=== PATIENT | female | born 2000 | race Caucasian/White ===

== ENCOUNTER 2022-04-14 17:02 | Observation (INO) | payer OTHER, BC, SELFPAY ==
[2022-04-14] VITALS (15 sets, daily range): BP systolic 115–145; BP diastolic 74–96; PULSE 82–122; RESP 16–18; TEMP 36.8–36.9; O2SAT 95–99; BMI 21.1
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
[2022-04-14] MEDS: KETOROLAC 30 MG/ML VIAL 15 MG IV (18:13)
[2022-04-14 18:49] LABS: Add Manual Diff / Slide Review NO; Basophils Absolute Auto 100 /uL (0-100); Basophils Percent Auto 0.7 % (0-2); Eosinophils Absolute Auto 100 /uL (0-450); Eosinophils Percent Auto 1.6 % (2-4); Hematocrit 36.1 % (36-46); Hemoglobin 12.4 g/dL (12.0-16.0); Lymphocytes Absolute Auto 2700 /uL (1100-4500); Lymphocytes Percent Auto 35.9 % (25-40); Mean Corpuscular HGB Conc 34.5 % (30-36); Mean Corpuscular Hemoglobin 30.9 PG (26-34); Mean Corpuscular Volume 89.8 fL (80-100); Monocytes Absolute Auto 500 /uL (0-900); Monocytes Percent Auto 7.3 % (3-14); Neutrophils Absolute Auto 4000 /uL (1500-7000); Neutrophils Percent Auto 54.5 % (50-75); Platelet Count 315 X10^3/uL (150-400); Red Blood Cell Count 4.02 X10^6/uL (4.0-5.2); Red Cell Distribution Width 12.5 % (11.6-14.8); White Blood Cell Count 7.4 X10^3/uL (4.5-11.0)
[2022-04-14 18:51] LABS: INR 1.1 (0.9-1.3); Prothrombin Time 13.1 SECONDS (10.1-12.7)
[2022-04-14 18:54] LABS: Alanine Aminotransferase 12 IU/L (<35); Albumin 3.6 g/dL (3.5-5.0); Albumin Globulin Ratio 1.2 (1.0-2.8); Alkaline Phosphatase 66 U/L (38-126); Aspartate Aminotransferase 37 IU/L (14-36); BUN Creatinine Ratio 7.5 (6-22); Bilirubin Total 0.3 mg/dL (0.2-1.3); Blood Urea Nitrogen 5 mg/dL (7-17); Calcium 8.5 mg/dL (8.4-10.2); Carbon Dioxide 24 mmol/L (22-32); Chloride 109 mmol/L (98-107); Estimated Glomerular Filt Rate > 60 mL/min (>60); Glucose 120 mg/dL (70-100); HEMOLYSIS 16 (0-50); Potassium 3.2 mmol/L (3.4-5.1); Sodium 140 mmol/L (137-145); Total Protein 6.6 g/dL (6.3-8.2)
[2022-04-14 19:15] LABS: COVID19 -Nasal RAPID Negative (Negative)
[2022-04-14] MEDS: fentaNYL 100 MCG/2 ML INJ IV (19:41)
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
[2022-04-14 20:07] LABS: Appearance Urine UA CLEAR; Bilirubin Urine UA NEGATIVE (NEGATIVE); Color Urine UA YELLOW; Glucose Urine UA NEGATIVE (Negative); Ketones Urine UA NEGATIVE (NEGATIVE); Leukocyte Esterase Urine UA TRACE (NEGATIVE); Nitrite Urine UA NEGATIVE (Negative); Occult Blood Urine UA 1+ (Negative); Protein Urine UA NEGATIVE (Negative); Specific Gravity Urine UA <=1.005 (1.000-1.035); Urobilinogen Urine UA 0.2 E.U./dL (0.2)
[2022-04-14 20:14] LABS: Pregnancy Test Urine Negative (Negative)
[2022-04-14 20:17] LABS: Bacteria Urine Moderate (10-30); Culture Indicated Urine Specimen Cultured; RBC Urine 0-1/HPF (0-5/HPF); Squamous Epithelial Cell Urine 1-5 /HPF (0-5/HPF); Transitional Epi Cells Urine 1-5/HPF (0-5/HPF); WBC Urine 10-30/HPF (0-5/HPF)
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
[2022-04-14] MEDS: DOCUSATE 100 MG CAPSULE PO (23:08)
[2022-04-14] MEDS: LACTATED RINGERS 1,000 ML 100 ML IV (23:08)
[2022-04-14] MEDS: ACETAMINOPHEN 325 MG TABLET 650 MG PO (23:08)
[2022-04-15] VITALS (18 sets, daily range): BP systolic 100–146; BP diastolic 64–93; PULSE 13–118; RESP 10–22; TEMP 36.2–36.9; O2SAT 92–99; BMI 21.1
[2022-04-15] MEDS: OXYCODONE IR 5 MG TABLET PO ×3 (00:31→11:07)
[2022-04-15] MEDS: ACETAMINOPHEN 325 MG TABLET 650 MG PO ×2 (05:24→11:06)
[2022-04-15] MEDS: DOCUSATE 100 MG CAPSULE PO ×2 (08:46→21:45)
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
[2022-04-15] MEDS: LACTATED RINGERS 1,000 ML 100 ML IV ×3 (09:20→21:38)
[2022-04-15] MEDS: POTASSIUM CHLORIDE 20 MEQ TAB 40 MEQ PO (12:44)
--- NOTE | 2022-04-15 17:12 | PM.PREOP ---
Pre-operative Note COVID-19 COVID-19 status: Negative Interval Note History & Physical reviewed/Exam performed by Physician: Yes Changes to H&P: No
[2022-04-15] MEDS: CEFAZOLIN 2 GM/100 ML PREMIX 100 ML IV (17:50)
--- NOTE | 2022-04-15 18:13 | SUR.OPER ---
Supine on padded OR bed, head on pillow, left arm secured on padded arm boards at <90 degrees abduction, right arm on padded extended arm board and in control of the Surgeon, legs uncrossed, pillow under knees, safety belt at thigh, tape over blanket over lower legs. Patient glasses removed and placed in hospital provided black glass case with patient label, patients bra and underwear removed also and placed in labeled belongings bag. Unable to remove a few piercings; one to left ear, one to right ear, nose ring, and umbilicus, all taped.
[2022-04-15] MEDS: BUPIVACAINE 0.25% (PF) 30 ML, EPINEPHrine 0.15 MG INJ (18:28)
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
[2022-04-15] MEDS: HYDROMORPHONE 2 MG INJ IV ×2 (20:09→20:19)
[2022-04-15] MEDS: OXYCODONE/ACETAMINOPHEN 5/325 TABLET 1 TAB PO (20:35)
--- NOTE | 2022-04-15 20:48 | SUR.PHASEI ---
Report called to SAMUEL Dwyer
--- NOTE | 2022-04-15 21:07 | SUR.PHASEI ---
Patient transferred to the floor. Report given to Yuliya. VS stable. IV saline locked. Right arm dressing CDI.
[2022-04-15] MEDS: HYDROMORPHONE 1 MG INJ 0.5 MG IV (21:37)
[2022-04-15] MEDS: BUSPIRONE 5 MG TABLET 10 MG PO (21:37)
[2022-04-15] MEDS: lamoTRIgine 25 MG CHEW TABLET PO (21:37)
[2022-04-15] MEDS: OXYCODONE IR 10 MG TABLET PO (23:14)
[2022-04-16] VITALS: BP 156/83; PULSE 73; RESP 18; TEMP 36.6; O2SAT 97
[2022-04-16] MEDS: CEFAZOLIN 2 GM/100 ML PREMIX 100 ML IV ×2 (01:11→10:39)
[2022-04-16 03:02] VITALS: BP 103/55; PULSE 62; RESP 18; TEMP 36.6; O2SAT 97
--- NOTE | 2022-04-16 03:22 | PC.NURSE ---
Pt is AxOx4, 1 person assistance and cooperative. VSS except HR it tachy and pt c/o pain on R arm. PRN Oxy 10mg x1, and IV Dilaudid 0.5mg x1 with good effect. Dressing on R arm C/D/I. Pt slept well overnight. Pt is voiding well. No other changes. Continue monitor.
[2022-04-16] MEDS: ONDANSETRON 4 MG/2 ML INJ IV (04:10)
[2022-04-16] MEDS: OXYCODONE IR 10 MG TABLET PO ×4 (04:46→13:11)
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
[2022-04-16 08:24] VITALS: BP 102/64; PULSE 64; RESP 18; TEMP 36.2; O2SAT 94
[2022-04-16] MEDS: DOCUSATE 100 MG CAPSULE PO (08:26)
[2022-04-16] MEDS: HYDROMORPHONE 1 MG INJ 0.5 MG IV (08:26)
[2022-04-16] MEDS: BUSPIRONE 5 MG TABLET 10 MG PO (08:26)
[2022-04-16] MEDS: lamoTRIgine 25 MG CHEW TABLET PO (08:26)
[2022-04-16] MEDS: ENOXAPARIN 40 MG/0.4 ML SYRINGE SUBCUT (08:26)
[2022-04-16] MEDS: ONDANSETRON 4 MG ODT PO ×2 (08:28→12:10)
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
[2022-04-16 13:09] VITALS: BP 110/53; PULSE 76; RESP 18; TEMP 36.4; O2SAT 95
== END 2022-04-16 13:30 | disposition home or self-care (01) ==
LOC: ED 19:01 → AC 19:01
PROVIDERS: Admitting Provider Orthopaedic Surgery Foot and Ankle Surgery; Emergency Provider Emergency Medicine; PCP Physician Assistant; Referring Provider Emergency Medicine; Visit Provider Orthopaedic Surgery Foot and Ankle Surgery
PROC: (CPT 25575; principal; 2022-04-15 17:30)
DX: S52.321A Displaced transverse fracture of shaft of right radius, initial encounter for closed fracture (principal); S52.251A Displaced comminuted fracture of shaft of ulna, right arm, initial encounter for closed fracture; V43.52XA Car driver injured in collision with other type car in traffic accident, initial encounter; Y92.413 State road as the place of occurrence of the external cause; Z20.822 Contact with and (suspected) exposure to COVID-19
CPT/HCPCS: 25575; 29125; 36415; 73090; 80053; 81001; 81025; 85025; 85610; 87086; 87147; 87635; 96361; 96365; 96366; 96372; 96375; 96376; 97166; 97535; 99284; C9803; G0378; J0171; J0690; J1100; J1170; J1650; J1885; J2250; J2405; J2704; J3010